=== PATIENT | male | born 1995 | race Caucasian/White ===

== ENCOUNTER 2018-12-23 15:27 | Emergency (ER) | payer SELFPAY ==
[~2018-12-23] VITALS: Ht 175.3 cm; Wt 69.9 kg
--- NOTE | 2018-12-23 16:05 | NUR ---
PT BIB SELF WITH C/O LEFT LEG PAIN X 3 DAYS, WITH COUGH X 2 DAYS, -N/V/D. SMALL BLACK COLOR LUMP/WOUND NOTED TO LEFT UPPER FRONT THIGH. PAIN 7/10, GAIT-WNL, PT DENIES N/V/D; SKIN IS INTACT, PINK/WARM/DRY; AAOX4, PERRL, WITH EVEN AND STEADY GAIT; LUNGS CLEAR BL, BREATHING UNLABORED; HR EVEN AND REGULAR, BL PERIPHERAL PULSES PRESENT; BS ACTIVE X4, NO TENDERNESS TO PALPATION. PT DENIES ANY FEVER, CP, SOB AT THIS TIME; PT STATES 7/10 PAIN AT THIS TIME; VSS; PATIENT POSITIONED FOR COMFORT; HOB ELEVATED; BEDRAILS UP X2; BED DOWN.
[2018-12-23 17:28] VITALS: BP 131/79
--- NOTE | 2018-12-23 17:28 | NUR ---
Patient discharged with v/s stable. Written and verbal after care instructions given and explained. Patient verbalized understanding. Ambulatory with steady gait. All questions addressed prior to discharge. Advised to follow up with PMD.
== END 2018-12-23 17:28 | disposition home or self-care (01) ==
LOC: MED 15:27
DX: J06.9 Acute upper respiratory infection, unspecified (principal); F17.200 Nicotine dependence, unspecified, uncomplicated
CPT/HCPCS: 99283

== ENCOUNTER 2019-11-26 11:19 | Inpatient (IN) | payer MEDICAID ==
[~2019-11-26] VITALS: Ht 170.2 cm; Wt 56.7 kg
[2019-11-26 11:24] VITALS: BP 133/75
--- NOTE | 2019-11-26 11:33 | NUR ---
w/c assist to bed 11
--- NOTE | 2019-11-26 11:49 | NUR ---
24 y/o m presents to ER c/o left ankle pain. Per pt a marble rock fell on left foot x6 days ago. Denies N/V/D. Pain level 10/10. Swelling noted to left ankle. Tender to touch. ERMD at bedside evaluating pt. Allergies: NKA Med hx: none
[2019-11-26] MEDS ORDERED: HYDROcodone/APAP 5/325 MG 1 TAB TAB PO ONE (11:50)
--- NOTE | 2019-11-26 11:54 | NUR ---
Xray at bedside
--- NOTE | 2019-11-26 12:35 | NUR ---
Lab at bedside
[2019-11-26 12:53] LABS: BASOPHILS % (AUTO) 0.2 % (0.0-2.0); EOSINOPHILS # (AUTO) 0.1 K/uL (0-0.4); EOSINOPHILS % (AUTO) 0.3 % (0.0-4.0); HEMATOCRIT 44.9 % (36-52); HEMOGLOBIN 14.8 g/dL (12.0-18.0); LYMPHOCYTES # (AUTO) 0.9 K/uL (2.0-11.5); MEAN CORPUSCULAR HEMOGLOBIN 31 pg (27-31); MEAN CORPUSCULAR HGB CONC 33 g/dL (33-37); MEAN CORPUSCULAR VOLUME 94.6 fL (80-94); MONOCYTES # (AUTO) 1.7 K/uL (0.8-1.0); MONOCYTES % (AUTO) 9.2 % (1.7-9.3); NEUTROPHILS # (AUTO) 15.6 K/uL (1.8-7.7); NEUTROPHILS % (AUTO) 85.3 % (42.2-75.2); PLATELET COUNT (AUTO) 248 K/uL (140-450); RED BLOOD CELL COUNT(AUTO) 4.74 MIL/uL (4.20-6.10); RED CELL DISTRIBUTION WIDTH 12.2 % (11.6-13.7); WHITE BLOOD COUNT (AUTO) 18.3 K/uL (4.8-10.8)
[2019-11-26 13:05] LABS: ANION GAP 11.1 (8-16); CARBON DIOXIDE 33.3 mmol/L (21-32); CREATININE 0.7 mg/dL (0.6-1.3); POTASSIUM 4.4 mmol/L (3.5-5.1)
--- NOTE | 2019-11-26 13:13 | NUR ---
pt resting in bed, side rail x1
[2019-11-26] MEDS ORDERED: VANCOMYCIN 1,000 MG in DEXTROSE 5% 250 ML IV ONE (14:30)
[2019-11-26] MEDS ORDERED: HYDROcodone/APAP 5/325 MG 1 TAB TAB PO PRN (14:40)
[2019-11-26] MEDS ORDERED: ACETAMINOPHEN 325 MG TAB PO PRN (14:40)
[2019-11-26] MEDS ORDERED: DOCUSATE SODIUM 100 MG GELCAP PO PRN (14:40)
[2019-11-26] MEDS ORDERED: ONDANSETRON 4 MG/2 ML VIAL IM/IVP PRN (14:40)
[2019-11-26] MEDS ORDERED: LORazepam 2 MG/ML VIAL IM/IVP PRN (14:40)
[2019-11-26] MEDS ORDERED: ZOLPIDEM 5 MG TAB PO PRN (14:40)
[2019-11-26] MEDS ORDERED: ceFAZolin 1,000 MG VIAL ONE (14:49)
[2019-11-26 15:16] LABS: MAGNESIUM 1.7 mg/dL (1.8-2.4); PHOSPHORUS 3.5 mg/dL (2.5-4.9); THYROID STIMULATING HORMONE 0.37 uIU/mL (0.34-3.74)
--- NOTE | 2019-11-26 15:20 | NUR ---
PT ADMITTED FROM ER AT THIS TIME. PT COMING FROM HOME WITH COMPLAINT OF PAIN AND SWELLING IN LEFT FOOT X 6 DAYS. NO DISTRESS NOTED AND DENIES PAIN UPON ARRIVAL. RESPIRATIONS EVEN AND UNLABORED ON ROOM AIR, CLEAR BREATH SOUNDS. SKIN INTACT, LEFT FOOT CELLULITIS PRESENT, CLOSED. IV IN PLACE PATENT AND ASYMPTOMATIC INFUSING PER ORDER IN L AC 22G. SAFETY MEASURES IN PLACE, BED IN LOW POSITION, CALL LIGHT WITHIN REACH. WILL CONTINUE TO MONITOR.
--- NOTE | 2019-11-26 15:23 | NUR ---
Patient will be admitted to care of Dr. Lange. Admited to [facility]. Will go to room 106B. Belongings list completed. Report to SCARLETT Salmeron.
--- NOTE | 2019-11-26 15:23 | NUR ---
Transfer of care and report given to SCARLETT Salmeron
[2019-11-26 15:38] LABS: PROTHROMBIN TIME 10.2 secs (10.8-13.4)
[2019-11-26] MEDS: NACL 0.9% 1,000 ML IV SCH (15:40)
[2019-11-26 16:00] VITALS: BP 104/54
[2019-11-26] MEDS ORDERED: MAGNESIUM OXIDE 400 MG TAB PO SCH (17:30)
--- NOTE | 2019-11-26 17:32 | NUR ---
PT IN BED ASLEEP, NO DISTRESS NOTED. RESPIRATIONS EVEN AND UNLABORED. SAFETY MEASURES IN PLACE. CALL LIGHT WITHIN REACH, WILL CONTINUE TO MONITOR.
--- NOTE | 2019-11-26 19:14 | NUR ---
REPORT GIVEN TO NIGHT NURSE FOR CONTINUITY OF CARE.
--- NOTE | 2019-11-26 19:15 | NUR ---
RECEIVED BEDSIDE REPORT FROM AM SHIFT RN FOR PT'S CONTINUITY OF CARE. PT IS LYING DOWN ASLEEP WITH NO SIGNS OF DISTRESS. PT IS MED/SURG, IS ON ROOM AIR, HAS LEFT AC 22G WITH BS AT 60ML/HR. SAFETY MEASURES IN PLACE, AND CALL LIGHT IS WITHIN REACH. WILL MONITOR PT THROUGHOUT SHIFT.
--- NOTE | 2019-11-26 21:00 | NUR ---
PT ASLEEP, WOKE UP TO ASSESS FOOT CELLULITIS, REPOSITION, AND CHANGE ICE PACK. PT DENIES ANY PAIN. PT'S NEEDS MET AT THIS TIME. WILL CONTINUE TO MONITOR PT.
--- NOTE | 2019-11-26 23:00 | NUR ---
PT ASLEEP WITH NO SIGNS OF DISTRESS.
[2019-11-27] VITALS: BP 116/54
--- NOTE | 2019-11-27 00:30 | NUR ---
PT REQUESTED AND PROVIDED WITH WATER. PT DENIES ANY PAIN OR DISCOMFORT. WILL CONTINUE TO MONITOR PT.
--- NOTE | 2019-11-27 02:30 | NUR ---
MADE ROUNDS. PT ASLEEP WITH NO SIGNS OF DISTRESS. WILL CONTINUE TO MONITOR PT.
[2019-11-27] MEDS: MORPHINE SULFATE 2 MG/ML SYR IVP PRN ×3 (03:43→13:21)
--- NOTE | 2019-11-27 03:53 | NUR ---
PT C/O PAIN 7/10 WHEN URINATING, RADIATING DOWN TO LEFT LEG. ADMINISTERED PRN IVP PAIN MEDICATION ORDERED. PT TEACHING GIVEN, PT VERBALIZED UNDERSTANDING. COLLECTED URINE FOR UA AND UDS, WILL SEND TO THE LAB. PT'S NEEDS MET AT THIS TIME. WILL CONTINUE TO MONITOR PT.
--- NOTE | 2019-11-27 06:05 | NUR ---
PT ASLEEP. REAPPLIED NEW ICE PACK, REPOSITIONED PT. PT DOES NOT SHOW ANY SIGNS OF DISTRESS OR DISCOMFORT. WILL ENDORSE TO AM SHIFT RN FOR PT'S CONTINUITY OF CARE.
[2019-11-27 06:35] LABS: BASOPHILS % (AUTO) 0.3 % (0.0-2.0); EOSINOPHILS # (AUTO) 0.1 K/uL (0-0.4); EOSINOPHILS % (AUTO) 0.5 % (0.0-4.0); HEMATOCRIT 43.9 % (36-52); HEMOGLOBIN 14.5 g/dL (12.0-18.0); LYMPHOCYTES # (AUTO) 1.4 K/uL (2.0-11.5); LYMPHOCYTES % (AUTO) 7.6 % (20.5-51.1); MEAN CORPUSCULAR HEMOGLOBIN 31 pg (27-31); MEAN CORPUSCULAR HGB CONC 33 g/dL (33-37); MEAN CORPUSCULAR VOLUME 94.3 fL (80-94); MONOCYTES # (AUTO) 1.7 K/uL (0.8-1.0); MONOCYTES % (AUTO) 9.1 % (1.7-9.3); NEUTROPHILS # (AUTO) 15.2 K/uL (1.8-7.7); NEUTROPHILS % (AUTO) 82.5 % (42.2-75.2); PLATELET COUNT (AUTO) 244 K/uL (140-450); RED BLOOD CELL COUNT(AUTO) 4.65 MIL/uL (4.20-6.10); RED CELL DISTRIBUTION WIDTH 12.5 % (11.6-13.7); WHITE BLOOD COUNT (AUTO) 18.5 K/uL (4.8-10.8)
[2019-11-27 06:58] LABS: ANION GAP 8.2 (8-16); CARBON DIOXIDE 34.2 mmol/L (21-32); CREATININE 0.7 mg/dL (0.6-1.3); POTASSIUM 4.4 mmol/L (3.5-5.1)
[2019-11-27 07:03] LABS: CHOL/HDL RATIO 1.9 (1-4.5)
[2019-11-27 07:04] LABS: MAGNESIUM 1.7 mg/dL (1.8-2.4); PHOSPHORUS 2.4 mg/dL (2.5-4.9)
--- NOTE | 2019-11-27 07:05 | NUR ---
RECEIVED PATIENT FROM LUMBER INSPECTOR NURSE FOR CONTINUITY OF CARE. PATIENT IS SLEEPING AT THIS TIME. COLOMBIAN SPEAKING ONLY. NO SIGNS OF DISTRESS NOTED. RESPIRATIONS EVEN AND UNLABORED, ROOM AIR. VISIBLE CHEST RISE NOTED. SKIN WARM, DRY, INTACT. DX IS LEFT FOOT CELLULITIS. ICE PACK IN PLACE, LEFT FOOT IS ELEVATED. IV IN THE LEFT AC G 22 RUNNING NS AT 60 ML/HR. IV IS FLUSHING WELL. BED IN LOW POSITION. CALL LIGHT IS WITHIN REACH. SAFETY MEASURES IN PLACE. WILL CONTINUE TO MONITOR
[2019-11-27 07:29] LABS: APPEARANCE,URINE CLEAR (CLEAR); BILIRUBIN,URINE NEGATIVE (NEGATIVE); BLOOD, URINE NEGATIVE (NEGATIVE); COLOR,URINE YELLOW (YELLOW); LEUKOCYTE ESTERASE ,URINE NEGATIVE (NEGATIVE); NITRITE, URINE NEGATIVE (NEGATIVE); PH,URINE 7.5 (5.0-9.0); UGLUCOSE NEGATIVE (NEGATIVE)
[2019-11-27 07:46] LABS: BARBITURATE, URINE NEG. ng/ml (NEG <=200); BENZODIAZEPINE, URINE NEG. ng/mL (NEG <=200); CANNABINOID, URINE POS. ng/mL (NEG <=50); COCAINE, URINE NEG. ng/mL (NEG <=300); OPIATE, URINE NEG. ng/mL (NEG <=2000); PHENCYCLIDINE SCREEN,URINE NEG. ng/mL (NEG <=25)
--- NOTE | 2019-11-27 07:58 | NUR ---
UPON ASPIRATING THE MORPHINE, THE BOTTOM COVER BLEW AND WAS UNABLE TO GET THE MEDICATION.
--- NOTE | 2019-11-27 07:59 | NUR ---
GIVEN MORPHINE FOR LEG PAIN 06/22. HANG NEW NS 1000 BAG AT 60 ML/HR. EXPLAINED TO PATIENT MED AND SIDE EFFECTS. PATIENT VERBALIZED UNDERSTANDING. BED IN LOW POSITION. CALL LIGHT IS WITHIN REACH. STUDENT NURSE HELPED TRANSLATE
[2019-11-27 08:00] VITALS: BP 128/67
[2019-11-27] MEDS: NACL 0.9% 1,000 ML IV SCH ×2 (08:04→23:58)
--- NOTE | 2019-11-27 08:05 | NUR ---
DIET THERAPIST IS AWARE ABOUT THE MORPHINE INCIDENCE
--- NOTE | 2019-11-27 08:10 | NUR ---
APPLIED ICE PACKS IN THE LEFT LEG.
--- NOTE | 2019-11-27 08:36 | NUR ---
PATIENT HAS BEEN SCREENED AND CATEGORIZED MODERATE NUTRITION RISK. PATIENT WILL BE SEEN WITHIN 3-5 DAYS OF ADMISSION. 11/29/19 - 12/01/19 JILLIAN JAY MBA, RD
--- NOTE | 2019-11-27 10:33 | NUR ---
PATIENT REQUESTED SHOWERING. KILN REPAIRER IS TO HELP PATIENT
--- NOTE | 2019-11-27 11:23 | NUR ---
APPLIED ICE PACKS IN THE LEFT LEG. ELEVATED LEGS
[2019-11-27] MEDS ORDERED: DOCUSATE SODIUM 100 MG GELCAP PO SCH (13:00)
--- NOTE | 2019-11-27 13:09 | NUR ---
GIVEN COLACE. EXPLAINED TO PATIENT MED AND SIDE EFFECTS. GIVEN MED MONOGRAM IN IT[place]. PATIENT VERBALIZED UNDERSTANDING. NO SIGNS OF DISTRESS NOTED. WILL CONTINUE TO MONITOR
--- NOTE | 2019-11-27 13:21 | NUR ---
GIVEN MORPHINE FOR LEFT LEG PAIN 05/22. BP IS 125/71, HR 77, O2SAT 98%. EXPLAINED TO PATIENT MED AND SIDE EFFECTS. PATIENT VERBALIZED UNDERSTANDING. APPLIED ICE PACKS IN THE LEFT LEG. BED IN LOW POSITION. CALL LIGHT IS WITHIN REACH. WILL CONTINUE TO MONITOR.
--- NOTE | 2019-11-27 14:21 | NUR ---
REASSESSED FOR PAIN. PATIENT DENIES PAIN. WILL CONTINUE TO MONITOR
--- NOTE | 2019-11-27 15:28 | NUR ---
PATIENT IS SLEEPING AT THIS TIME. NO SIGNS OF DISTRESS NOTED. APPLIED ICE PACKS IN THE LEFT LEG/ANKLE. PATIENT DENIES PAIN. NO SOB. NO CHEST PAIN. BED IN LOW POSITION. CALL LIGHT IS WITHIN REACH.WILL CONTINUE TO MONITOR
[2019-11-27 16:00] VITALS: BP 128/62
[2019-11-27] MEDS: KETOROLAC 15 MG/ML VIAL IVP PRN (16:47)
--- NOTE | 2019-11-27 16:47 | NUR ---
GIVEN TORADOL FOR PAIN 6/10 LEFT LEG. EXPLAINED TO PATIENT MED AND SIDE EFFECTS. PATIENT VERBALIZED UNDERSTANDING. BED IN LOW POSITION. CALL LIGHT IS WITHIN REACH. WILL CONTINUE OT MONITOR
--- NOTE | 2019-11-27 16:53 | NUR ---
PATIENT STATED THAT WHENEVER HE VOIDS, HIS LEFT LEG HURTS. APPLIED NEW ICE PACKS IN THE LEFT LEG
--- NOTE | 2019-11-27 17:47 | NUR ---
REASSESSED PAIN. PATIENT DENIES PAIN. WILL CONTINUE TO MONITOR
[2019-11-27] MEDS ORDERED: VANCOMYCIN PER PHARMACY MC PRN (18:05)
--- NOTE | 2019-11-27 18:15 | NUR ---
PATIENT IS EATING DINNER AT THIS TIME. NO SIGNS OF DISTRESS NOTED. BED IN LOW POSITION. CALL LIGHT IS WITHIN REACH.
--- NOTE | 2019-11-27 18:45 | NUR ---
APPLIED ICE PACKS IN THE LEFT LEG. ELEVATED LEG
[2019-11-27] MEDS ORDERED: VANCOMYCIN 1GM/DEXT 5% PREMIX 200 ML IV SCH (19:00)
--- NOTE | 2019-11-27 19:21 | NUR ---
ENDORSED PATIENT TO THE ENGINE ASSEMBLER NURSE FOR CONTINUITY OF CARE. PATIENT IS SLEEPING, NO SIGNS OF DISTRESS NOTED. RESPIRATIONS EVEN AND UNLABORED, ROOM AIR. ICE PACK IN THE LEFT LOWER LEG AND ELEVATED.
--- NOTE | 2019-11-27 19:30 | NUR ---
RECEIVED FROM AM RN IN BED AWAKE AND ALERT. NO SOB. DENIES PAIN AT THIS TIME. RE-ORIENTED TO CALL LIGHT FOR ANY HELP HE MAY NEED. IVF SITE INTACT AND NO INFILTRATION. DX. CELLULITIS TO LEG. NO RESTLESSNESS AT THIS TIME.
[2019-11-27] MEDS ORDERED: PSYLLIUM 12.2 GM/PKT PO SCH (21:00)
[2019-11-27] MEDS ORDERED: VANCOMYCIN 1,000 MG VIAL ONE (22:52)
--- NOTE | 2019-11-27 23:14 | NUR ---
AWAKE AT THIS TIME AND ABLE TO VERBALIZE IN [place] NOTED. ABLE TO UNDERSTAND INSTRUCTION GIVEN IN [place]. PT. REQUESTING FOR SLEEPING PILL. WILL MEDICATE WITH AMBIEN REQUESTED. VANCOMYCIN IVPB 1 GRAM ADMINISTERED ORDERED. WILL MONITOR FOR ANY S/S OF ADVERSE REACTION.
[2019-11-28] VITALS: BP 101/71
--- NOTE | 2019-11-28 00:17 | NUR ---
SLEEPING. NO RESTLESSNESS. CALL LIGHT WITH IN REACH.
[2019-11-28] MEDS: NACL 0.9% 1,000 ML IV SCH (03:41)
--- NOTE | 2019-11-28 03:51 | NUR ---
PT. SLEEPING WELL. NO RESTLESSNESS. PT. ABLE TO VERBALIZE NEEDS WELL. NO SOB. IVF SITE INTACT AND NO INFILTRATION. CALL LIGHT WITH IN REACH.
[2019-11-28] MEDS: KETOROLAC 15 MG/ML VIAL IVP PRN (05:57)
[2019-11-28] MEDS ORDERED: MAGNESIUM OXIDE 400 MG TAB PO ONE (06:00)
[2019-11-28] MEDS ORDERED: CEPH500C16 PO (06:18)
--- NOTE | 2019-11-28 06:24 | NUR ---
PT. HAD TRAMADOL IVP REQUESTED AND WANTED TO GO AMA AFTER. "I WANT TO GO HOME NOW" IN [place]. INFORMED MD OF PT. WANTING AMA. RESIDENT MD ABLE TO TALK WITH HIM AND GAVE HIM PRESCRIPTION FOR ABT P.O. EXPLAINED BY RESIDENT MD IN [place] PROS AND CONS. STILL WANT TO GO AMA. PT. SIGNED PAPER WORK AND WAS WHEELED TO FRONT BY AM MOSAIC TILER.
[2019-11-28 06:25] LABS: BASOPHILS % (AUTO) 0.3 % (0.0-2.0); EOSINOPHILS # (AUTO) 0.2 K/uL (0-0.4); EOSINOPHILS % (AUTO) 1.2 % (0.0-4.0); HEMATOCRIT 39.3 % (36-52); HEMOGLOBIN 13.5 g/dL (12.0-18.0); LYMPHOCYTES # (AUTO) 1.3 K/uL (2.0-11.5); MEAN CORPUSCULAR HEMOGLOBIN 31 pg (27-31); MEAN CORPUSCULAR HGB CONC 34 g/dL (33-37); MEAN CORPUSCULAR VOLUME 90.2 fL (80-94); MONOCYTES # (AUTO) 1.3 K/uL (0.8-1.0); MONOCYTES % (AUTO) 9.1 % (1.7-9.3); NEUTROPHILS # (AUTO) 11.7 K/uL (1.8-7.7); PLATELET COUNT (AUTO) 272 K/uL (140-450); RED BLOOD CELL COUNT(AUTO) 4.36 MIL/uL (4.20-6.10); RED CELL DISTRIBUTION WIDTH 12.3 % (11.6-13.7); WHITE BLOOD COUNT (AUTO) 14.6 K/uL (4.8-10.8)
[2019-11-28 06:44] LABS: ANION GAP 10.4 (8-16); CARBON DIOXIDE 30.8 mmol/L (21-32); CREATININE 0.6 mg/dL (0.6-1.3); POTASSIUM 4.2 mmol/L (3.5-5.1)
[2019-11-28 07:21] LABS: LYMPHOCYTES % (AUTO) 9.2 % (20.5-51.1); NEUTROPHILS % (AUTO) 80.2 % (42.2-75.2)
[2019-11-29] MEDS ORDERED: MAG SULF 2000 MG/WATER PREMIX 50 ML IV ONE (06:50)
== END 2019-11-28 06:25 | disposition left against medical advice (07) | DRG 720 ==
LOC: MED 11:19 → MTU 14:38
PROVIDERS: ADMIT General Practice; ATTEND General Practice
DX: A41.9 Sepsis, unspecified organism (principal); E83.39 Other disorders of phosphorus metabolism; L03.116 Cellulitis of left lower limb; E83.42 Hypomagnesemia; F17.210 Nicotine dependence, cigarettes, uncomplicated; F12.90 Cannabis use, unspecified, uncomplicated; F15.90 Other stimulant use, unspecified, uncomplicated; Z83.3 Family history of diabetes mellitus; Z71.51 Drug abuse counseling and surveillance of drug abuser
CPT/HCPCS: 36415; 71045; 73610; 80048; 80305; 81003; 83036; 83605; 83690; 83735; 83880; 84100; 84443; 85025; 85610; 85651; 85730; 87040; 87081; 96365; 99285; J0690; J1885; J2270; J3370; J3475; J7030; J7060; Q0092